=== PATIENT | male | born 1995 | race Caucasian/White ===

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

== ENCOUNTER 2017-01-06 22:19 | Emergency (ER) | payer OTHER | END 2017-01-07 00:45 | disposition home or self-care (01) | LOC: ER1 22:19 | DX: S20.212A Contusion of left front wall of thorax, initial encounter (principal); F12.10 Cannabis abuse, uncomplicated; F17.200 Nicotine dependence, unspecified, uncomplicated; V86.59XA Driver of other special all-terrain or other off-road motor vehicle injured in nontraffic accident, initial encounter; Y93.89 Activity, other specified | CPT/HCPCS: 70450; 71250; 96372; 99284; J1885 ==